=== PATIENT | female | born 1955 | race Caucasian/White ===

== ENCOUNTER 2024-08-10 14:05 | Emergency (ER) | payer MEDICARE, OTHER, SELFPAY ==
--- NOTE | ~2024-08-10 | XR_ITS ---
EXAMINATION: XR FINGER, LEFT CLINICAL INFORMATION: laceration COMPARISON: None available. TECHNIQUE: PA oblique and lateral views of the left thumb. PA view left hand. FINDINGS: No acute cortical disruption or malalignment. No lytic or blastic lesions. No subcutaneous emphysema. No metallic or radiopaque foreign body. There is a well-corticated calcification in the volar aspect of the distal interphalangeal joint of the left thumb. XR/XR finger LT min 2V IMPRESSION: No acute fracture or dislocation. No gross foreign body. Electronically signed by: Natanael Martinez MD 08/10/2024 03:16 PM EST RP
[2024-08-10 14:45] VITALS: BP 119/62; PULSE 56; RESP 16; TEMP 36.8; O2SAT 100; BMI 20.7
--- NOTE | 2024-08-10 14:45 | ED.SKABFB ---
HPI - Skin/Abscess/Foreign Bdy General Chief complaint: Wound/Laceration Stated complaint: L thumb lac Time Seen by Provider: 08/10/24 17:33 Source: patient, RN notes reviewed and old records reviewed Mode of arrival: ambulatory History of Present Illness ED Provider: Jessica Lovelace PA-C HPI narrative: 68-year-old female with no significant past medical history presenting to ED sent in from urgent care for laceration to left thumb s/p accidentally cutting finger while cutting bread this morning. Vaccinations up-to-date. Denies anticoagulation use. Denies injury to other area, numbness, tingling, weakness. Related Data Allergies Allergy/AdvReac Type Severity Reaction Status Date / Time iodine AdvReac Palpitation Verified 08/10/24 14:53 s Review of Systems Review of Systems: Yes all other systems are reviewed and are negative Constitutional: Constitutional: Reports as per [facility] Past Medical History Attestation statement: The following information was validated with the patient. Source: old records reviewed Social History Social History Advance Directives: No Advance Directives Information Provided: No Physical Exam Vital Signs: Vital Signs: Last Vital Signs Temp 98.3 F 08/10/24 18:36 Pulse 56 08/10/24 18:36 Resp 16 08/10/24 18:36 BP 119/62 08/10/24 18:36 Pulse Ox 100 08/10/24 18:36 O2 Del Method Room Air 08/10/24 18:36 BMI result Body Mass Index 20.7 Const: General: cooperative, healthy appearing and no acute distress Orientation/consciousness: patient oriented x3 Limitations: no limitations HEENT: Head: Yes normal to inspection and Yes atraumatic Ears: hearing grossly normal bilaterally General nose exam: Normal external nose present Face and sinus: Yes normal facial exam Eyes: General: appearance normal, both eyes and all related structures EOM: EOMs intact bilaterally Neck: Neck: Yes normal visual inspection and Yes no meningeal signs Resp: Effort & Inspection: normal respiratory effort and no respiratory distress Cardio: Rate: regular rate Skin: Other: Small 1 cm superficial avulsion /flap laceration noted to distal left thumb. Bleeding controlled. Full range of motion intact. [id number] opposition intact. Rashes: no rashes Neuro: General: patient oriented x3, tone normal and no meningeal signs Cranial nerves: Yes CN's II-XII intact bilaterally Gait exam (Neuro): Normal gait present Extrem: General: Yes normal to inspection Course Course Course Narrative: This is an RME: Additional HPI, ROS, PE not included below will be deferred to primary provider. RME assessment and note performed by: Ambar Roblero PA-C This is a [id number]-female, bigeminy/trigeminy arrhythmia, who presents to the ER with complaints of right thumb laceration x 2.5 hours ago. Reports she accidentally lacerated her right thumb on a bread knife. No AC use. Was seen at Urgent care and was told to come to the ER for suture repair. UTD to tdap Plan: xr XR finger LT min 2V IMPRESSION: No acute fracture or dislocation. No gross foreign body. Results discussed with patient including worrisome signs and symptoms and strict return precautions, and when to return to the emergency department. They verbalized understanding and feel safe for discharge at this time. Medications Administered Discontinued Medications Generic Name Dose Route Start Last Admin Trade Name Freq PRN Reason Stop Dose Admin Lidocaine HCl 5 ml 08/10/24 17:36 08/10/24 17:57 Lidocaine Hcl 1 % Mpf 5 Ml Vial INFILTRATI 08/10/24 17:37 Not Given ONCE ONE Medical Decision Making Medical Decision Making MDM Narrative: 68-year-old female with no significant past medical history presenting to ED sent in from urgent care for laceration to left thumb s/p accidentally cutting finger while cutting bread this morning. On exam vital signs stable, NAD, nontoxic appearing, physical exam as noted above. Concern for avulsion laceration. Low suspicion for fracture, tendon/ ligamental injury Plan: X-rays ordered in triage, Dermabond repair. Wound does not require suture repair. Please refer to course for remaining clinical decision making, interpretation of labs/imaging results, and discussions with consultants and/or family members. Differential Diagnosis Differential Diagnoses: The differential diagnosis associated with the presentation includes As above Independent Interpretation I performed an independent interpretation of an: Plain X-Ray Radiology Impression Discussion of test interpretation with radiology: I have reviewed the radiologist's reading. External Record Review External record reviewed: Inpatient record, Office record, Outpatient record, Prior outpatient labs, Prior outpatient radiology, Primary care record and Outside ED record Tests considered The following testing was considered but not selected: As above Prescription Management I considered prescription management with: Pain Medication and Antibiotic Chronic Conditions Patient?s care impacted by: Other Social Determinants Patient?s care significantly limited by Social Determinants of Health including: Other Social Determinant of Health Procedures Laceration Laceration 1: Site: hand Side (If applicable): left Size (cm): 1 Description: flap Depth: simple, single layer Pre-repair: irrigated extensively and deep structures intact Skin layer closed with: other ( Dermabond) Discharge Plan Discharge Clinical Impression: Laceration Patient Disposition: Home, Self-Care Instructions: Finger Laceration (ED) Additional Instructions: Your wounds were repaired today in the emergency department. Keep dry and clean. your x-ray is unremarkable do not pick at the skin glue once skin glue falls off you may apply bacitracin or Neosporin Apply bacitracin and or Neosporin daily If area begins look infected, is red, there is drainage, streaking, or you have fever please return to the emergency department Referrals: Physician,Kendell J [Primary Care Provider] - 1 week Interventions: ED Discharge Assessment Last Done: 08/10/24 18:36 Discharge Date/Time: 08/10/24 18:45 Print Language: Kazakh
[2024-08-10 18:36] VITALS: BP 119/62; PULSE 56; RESP 16; TEMP 36.8; O2SAT 100
== END 2024-08-10 18:45 | disposition home or self-care (01) ==
LOC: HO.ED 18:39
PROVIDERS: Emergency Provider Emergency Medicine
DX: S61.012A Laceration without foreign body of left thumb without damage to nail, initial encounter (principal); M79.642 Pain in left hand; W26.0XXA Contact with knife, initial encounter; Y93.G3 Activity, cooking and baking; Y92.000 Kitchen of unspecified non-institutional (private) residence as the place of occurrence of the external cause; Y99.8 Other external cause status
CPT/HCPCS: 12001; 73140; 99282; 99283; 99284

== ENCOUNTER → 2024-08-10 14:52 | Outpatient (BNV) | payer SELFPAY | PROVIDERS: Visit Provider Radiology Diagnostic Radiology | DX: S61.012A Laceration without foreign body of left thumb without damage to nail, initial encounter (principal) | CPT/HCPCS: 73140 ==